=== PATIENT | female | born 1990 | race Caucasian/White ===

== ENCOUNTER 2023-04-20 03:12 | Emergency (ER) | payer SELFPAY ==
[~2023-04-20] VITALS: Ht 165.1 cm; Wt 54.0 kg
[2023-04-20 03:28] VITALS: O2SAT 98
[2023-04-20] MEDS: ONDANSETRON 4MG ODT PO ONE (04:37)
[2023-04-20] MEDS: VISCOUS LIDOCAINE 2% 15 ML UDC PO NR (04:37)
[2023-04-20] MEDS: MAGNESIUM/ALUMINUM HYDROXIDE/SIMETHICONE 30ML UDC PO ONE (04:37)
[2023-04-20 05:26] LABS: BASOPHILS % 0.4 % (0.0-2.0); EOSINOPHILS % 0.1 % (0.0-5.0); HEMATOCRIT. 38.8 % (36.0-48.0); HEMOGLOBIN. 13.5 g/dL (12.0-16.0); LYMPHOCYTES % 13.2 % (20.0-50.0); MEAN CORPUSCULAR HEMOGLOBIN 30.2 pg (28.0-32.0); MEAN CORPUSCULAR HGB CONC 34.7 g/dL (31.0-37.0); MEAN CORPUSCULAR VOLUME 87.1 fL (81.0-99.0); MEAN PLATELET VOLUME 8.5 fl (7.4-10.4); MONOCYTES % 3.2 % (2.0-8.0); NEUTROPHILS % 83.1 % (40.0-76.0); PLATELET 247 x1000/uL (130-400); RED BLOOD CELL COUNT 4.45 mill/uL (4.2-5.4); RED CELL DISTRIBUTION WIDTH 13.7 % (11.6-14.6)
[2023-04-20 05:40] LABS: CALCIUM 8.9 mg/dL (8.7-10.4); CARBON DIOXIDE 25 mEq/L (21-32); CHLORIDE 106 mEq/L (98-107); CREATININE 0.7 mg/dL (0.6-1.0); GLUCOSE 109 mg/dL (70-105); POTASSIUM 4.1 mEq/L (3.5-5.1); SODIUM 139 mEq/L (136-145); UREA NITROGEN BLOOD 10 mg/dL (9-23)
[2023-04-20 05:45] LABS: TROPONIN I HIGH SENSITIVITY < 4 ng/L (3.0-34)
[2023-04-20] MEDS ORDERED: ONDA4TAB50 MT (06:29)
[2023-04-20] MEDS ORDERED: MAG355OR21 MT (06:29)
[2023-04-20] MEDS: ONDANSETRON HCL 4MG/2ML INJ IV ONE (07:06)
[2023-04-20] MEDS: PANTOPRAZOLE SODIUM 40 MG/VIAL IV ONE (07:06)
[2023-04-20 07:57] VITALS: BP 105/65; PULSE 78; RESP 17; TEMP 98.1
== END 2023-04-20 08:02 | disposition home or self-care (01) ==
LOC: ER 03:12
DX: K29.20 Alcoholic gastritis without bleeding (principal)
CPT/HCPCS: 99285; 71045; 80048; 81025; 85025; 84484; 36415; 93005; Q0162